=== PATIENT | female | born 1955 | race Caucasian/White ===

== ENCOUNTER 2017-10-24 09:19 | Day surgery (SDC) | payer OTHER ==
[~2017-10-24] VITALS: Ht 154.9 cm; Wt 64.5 kg
[~2017-10-24 09:19] MED LIST: ACID REDUCER20 MG PO; ALBU90OI INH; ATOR40TA PO; Ativan1 MG PO; Calcium 600 MG1 EACH PO; DULO30 PO; DULO60; FISH1000 PO; FLONASE ALLERG9.9 ML NS; IBUP800 PO; LORA.5; MELA3 PO; METF500 PO; Multiple Vitam1 EACH PO; Nortriptyline H25 MG PO; PANT40 PO; QNASL8.7 GM INH; TEMA30 PO; TRAZ100 PO; VIIBRYD20 MG PO; Zyprexa10 MG PO
[2017-10-24] MEDS ORDERED: Desyrel50 MG (10:10)
[2017-10-24 10:20] LABS: Bun/Creatinine Ratio 9.5 (12.0-20.0); Calcium, Blood 8.5 mg/dL (8.5-10.1); Creatinine, Blood 1.16 mg/dL (0.40-1.00)
== END 2017-10-24 11:54 | disposition home or self-care (01) ==
LOC: ORSCSDS 09:19
PROVIDERS: Internal Medicine Gastroenterology
PROC: 0DB68ZX Excision of Stomach, Via Natural or Artificial Opening Endoscopic, Diagnostic (ICD-10-PCS; principal; 2017-10-24 10:45)
PROC: 0DJD8ZZ Inspection of Lower Intestinal Tract, Via Natural or Artificial Opening Endoscopic (ICD-10-PCS; principal; 2017-10-24 10:45)
DX: K30 Functional dyspepsia (principal); K29.00 Acute gastritis without bleeding; K20.9 Esophagitis, unspecified; K57.30 Diverticulosis of large intestine without perforation or abscess without bleeding; K59.00 Constipation, unspecified; R11.0 Nausea; Z87.11 Personal history of peptic ulcer disease; E78.5 Hyperlipidemia, unspecified; F41.9 Anxiety disorder, unspecified; F32.9 Major depressive disorder, single episode, unspecified; F17.210 Nicotine dependence, cigarettes, uncomplicated
CPT/HCPCS: 80048; 88305; 88342; J7120

== ENCOUNTER → 2018-01-09 | Outpatient (CLI) | payer OTHER ==
[~2018-01-09] MED LIST changes: +Desyrel50 MG
[2018-01-09 16:56] LABS: BASOPHILS ABSOLUTE AUTO 0.04 K/mm3 (0.00-0.23); BASOPHILS PERCENT AUTO 0 % (0-2); EOSINOPHILS PERCENT AUTO 1 % (0-6); Hematocrit 33.3 % (33.0-51.0); Hemoglobin 11.1 g/dL (11.5-16.0); IMMATURE GRAN ABSOLUTE AUTO 0.06 K/mm3 (0.00-0.10); IMMATURE GRAN PERCENT AUTO 1 % (0-1); LYMPHOCYTES ABSOLUTE AUTO 2.05 K/mm3 (0.84-5.20); LYMPHOCYTES PERCENT AUTO 19 % (21-46); MONOCYTES ABSOLUTE AUTO 0.75 K/mm3 (0.16-1.47); MONOCYTES PERCENT AUTO 7 % (4-13); Mean Corpuscular HGB Conc 33.3 g/dL (31.5-36.5); Mean Corpuscular Volume 90 fL (80-100); Mean Platelet Volume 10.2 fL (9.1-12.4); NEUTROPHILS ABSOLUTE AUTO 7.95 K/mm3 (1.96-9.15); NEUTROPHILS PERCENT AUTO 73 % (41-73); Platelet Count 325 K/mm3 (150-400); RDW Coefficient Variation 13.9 % (11.7-14.2); RDW Standard Deviation 45.7 fL (35.1-46.3); White Blood Cell Count 10.95 K/mm3 (4.00-11.30)
[2018-01-09 17:13] LABS: Alanine Aminotransfer (ALT/SGP 35 U/L (12-78); Albumin, Blood 3.5 g/dL (3.4-5.0); Alk Phos 76 U/L (40-126); Anion Gap 12 mmol/L (6-16); Aspartate Aminotrans (AST/SGOT 24 U/L (12-37); Bilirubin, Total 0.2 mg/dL (0.1-1.0); Blood Urea Nitrogen 20 mg/dL (8-24); Bun/Creatinine Ratio 11.8 (12.0-20.0); CO2, Blood 22 mmol/L (21-32); Calcium, Blood 9.1 mg/dL (8.5-10.1); Chloride, Blood 99 mmol/L (98-108); Globulin, Blood 3.4 g/dL (2.2-4.0); Glomerular Filtration Rate 30 (60-); Glucose, Blood 81 mg/dL (70-99); Potassium, Blood 4.1 mmol/L (3.5-5.5); Sodium, Blood 133 mmol/L (136-145); Total Protein, Blood 6.9 g/dL (6.4-8.2); Troponin I <0.017 ng/mL (0.000-0.040)
== END ==
LOC: LAB SHORT 16:52 → LAB EV 16:52
PROVIDERS: Physician Assistant
DX: R55 Syncope and collapse (principal)
CPT/HCPCS: 80053; 84484; 85025

== ENCOUNTER → 2018-03-01 | Outpatient (CLI) | payer OTHER | LOC: LAB SHORT 11:45 → LAB 11:45 | PROVIDERS: Nurse Practitioner Family | DX: Z01.419 Encounter for gynecological examination (general) (routine) without abnormal findings (principal) | CPT/HCPCS: G0145 ==

== ENCOUNTER 2020-11-04 12:16 | Day surgery (SDC) | payer OTHER ==
[~2020-11-04] VITALS: Ht 154.9 cm; Wt 66.8 kg
--- NOTE | 2020-11-04 13:24 | NUR ---
11/04/20 1324 Meagan Navarro 1 TRY RIGHT HAND VALVE 2 TRY RIGHT UPPER ARM NO FLASG MOVED
--- NOTE | 2020-11-04 14:49 | NUR ---
11/04/20 1449 TAE RAYA HIGH FIBER DIET/DIVERTICULOSIS PACKETS GIVEN TO PATIENT PER DRS ORDER
== END 2020-11-04 14:45 | disposition home or self-care (01) ==
LOC: ORSCSDS 12:16
PROVIDERS: Internal Medicine Gastroenterology
PROC: 0DJD8ZZ Inspection of Lower Intestinal Tract, Via Natural or Artificial Opening Endoscopic (ICD-10-PCS; principal; 2020-11-04 11:30)
DX: Z12.11 Encounter for screening for malignant neoplasm of colon (principal); K57.30 Diverticulosis of large intestine without perforation or abscess without bleeding; K64.1 Second degree hemorrhoids; K21.9 Gastro-esophageal reflux disease without esophagitis; E78.5 Hyperlipidemia, unspecified; N18.9 Chronic kidney disease, unspecified; D63.1 Anemia in chronic kidney disease; Z87.891 Personal history of nicotine dependence; Z79.899 Other long term (current) drug therapy; Z79.84 Long term (current) use of oral hypoglycemic drugs
CPT/HCPCS: J2704; J7120

== ENCOUNTER 2021-05-10 20:34 | Observation (INO) | payer OTHER ==
[~2021-05-10] VITALS: Ht 154.9 cm; Wt 73.4 kg
[~2021-05-10 20:34] MED LIST changes: +FISH OIL 1,2001 EAC7 PO; -FISH1000 PO; +Hair, Skin & N1 EACH PO; -Multiple Vitam1 EACH PO
[2021-05-10] MEDS ORDERED: REMERON15 M4 PO (20:48)
[2021-05-10] MEDS ORDERED: TRAM50 PO (20:49)
[2021-05-10 20:59] LABS: BASOPHILS ABSOLUTE AUTO 0.09 K/mm3 (0.00-0.23); BASOPHILS PERCENT AUTO 1 % (0-2); EOSINOPHILS ABSOLUTE AUTO 0.25 K/mm3 (0.00-0.68); EOSINOPHILS PERCENT AUTO 2 % (0-6); Hematocrit 34.7 % (33.0-51.0); Hemoglobin 11.8 g/dL (11.5-16.0); IMMATURE GRAN ABSOLUTE AUTO 0.04 K/mm3 (0.00-0.10); IMMATURE GRAN PERCENT AUTO 0 % (0-1); LYMPHOCYTES ABSOLUTE AUTO 2.33 K/mm3 (0.84-5.20); LYMPHOCYTES PERCENT AUTO 18 % (21-46); MONOCYTES ABSOLUTE AUTO 0.84 K/mm3 (0.16-1.47); MONOCYTES PERCENT AUTO 7 % (4-13); Mean Corpuscular HGB 29.9 pg (26.0-34.0); Mean Corpuscular Volume 88 fL (80-100); Mean Platelet Volume 10.1 fL (9.1-12.4); NEUTROPHILS ABSOLUTE AUTO 9.13 K/mm3 (1.96-9.15); NEUTROPHILS PERCENT AUTO 72 % (41-73); Platelet Count 352 K/mm3 (150-400); RDW Coefficient Variation 12.5 % (11.7-14.2); RDW Standard Deviation 40.4 fL (35.1-46.3); Red Blood Cell Count 3.95 M/mm3 (3.80-5.20); White Blood Cell Count 12.68 K/mm3 (4.00-11.30)
[2021-05-10 21:29] LABS: Acetaminophen, Random <2.0 ug/mL (10.0-30.0); Alanine Aminotransfer (ALT/SGP 25 U/L (12-78); Albumin, Blood 3.9 g/dL (3.4-5.0); Albumin/Globulin Ratio 1.3 (0.8-1.8); Alk Phos 74 U/L (50-136); Anion Gap 15 mmol/L (6-16); Aspartate Aminotrans (AST/SGOT 19 U/L (12-37); Bilirubin, Total 0.2 mg/dL (0.1-1.0); Blood Urea Nitrogen 16 mg/dL (8-24); Bun/Creatinine Ratio 14.7 (12.0-20.0); CO2, Blood 15 mmol/L (21-32); Calcium, Blood 8.5 mg/dL (8.5-10.1); Chloride, Blood 102 mmol/L (98-108); Creatinine, Blood 1.09 mg/dL (0.40-1.00); Ethanol (Alcohol), Blood, Med <3 mg/dL; Glomerular Filtration Rate 50 (60-); Glucose, Blood 124 mg/dL (70-99); Potassium, Blood 3.1 mmol/L (3.5-5.5); Salicylate <1.7 mg/dL (2.8-20.0); Sodium, Blood 132 mmol/L (136-145); Thyroxine (T4) 8.3 ug/dL (4.8-13.9); Total Protein, Blood 6.9 g/dL (6.4-8.2)
[2021-05-10 22:42] LABS: Source, Urine Clean Catch
[2021-05-10 22:50] LABS: Appearance, Urine Clear (Clear); Bilirubin, Urine Neg (Neg); Blood, Urine 1+ (Neg); Color, Urine Yellow (P-Yellow); Glucose Qualitative, Urine Neg (Neg); Ketones, Urine Neg (Neg); Leukocyte Esterase, Urine Neg (Neg); Nitrite, Urine Neg (Neg); Protein, Urine 2+ (Neg); Urobilinogen, Urine NORM (Normal)
[2021-05-10 22:56] LABS: Amorphous Mod (0-Heavy); Bacteria Few /hpf; Hyaline Casts 0-2 /lpf (0-2); Squamous Epithelial Cells Few /hpf (Few); White Blood Cells, Urine 0-2 /hpf (0-5)
[2021-05-10 23:00] LABS: U Amphetamine Screen Not Detected; U Barbituate Screen Not Detected; U Benzodiazapine Screen Not Detected; U Buprenorphine Screen Not Detected; U Cannabinoids Screen Not Detected; U Cocaine Screen Not Detected; U Methadone Screen Not Detected; U Methamphetamine Screen Not Detected; U Opiates Screen Not Detected; U Oxycodone Screen Not Detected; U Phencyclidine Screen Not Detected; U Propoxyphene Screen Not Detected
[2021-05-11] MEDS ORDERED: VITAMIN D PO (00:07)
--- NOTE | 2021-05-11 00:35 | NUR ---
0003 PT ARRIVED TO ROOM FROM ER IN STABLE CONDITION. PT REPORTS ABD PAIN, WILL MEDICATE ORDERED AND EVAL FOR EFFECT. TELE NSR AT 86. NO OTHER APPARENT SIGNS OF DISTRESS. CALL LIGHT IS IN REACH.
--- NOTE | 2021-05-11 06:26 | NUR ---
0200 PT LYING IN BED, EYES CLOSED, APPEARS TO BE RESTING. BREATHING IS EVEN, UNLABORED. NO APPARENT SIGNS OF DISTRESS. CALL LIGHT IS IN REACH. 0400 PT LYING IN BED, AWAKE, DENIES NEED FOR ANYTHING AT THIS TIME. NO APPARENT SIGNS OF DISTRESS. CALL LIGHT IS IN REACH.
--- NOTE | 2021-05-11 06:27 | NUR ---
PT IS AAO X 4, ON RA. REPORTED ABD PAIN ON ADMIT, GAVE TYLENOL. TELE NSR. NO SEIZURES SEEN FOR THIS SHIFT.
--- NOTE | 2021-05-11 06:28 | NUR ---
PT LYING IN BED, EYES CLOSED, APPEARS TO BE RESTING. BREATHING IS EVEN, UNLABORED. NO APPARENT SIGNS OF DISTRESS. CALL LIGHT IS IN REACH. NO OTHER CHANGES THIS SHIFT.
[2021-05-11 06:38] LABS: BASOPHILS ABSOLUTE AUTO 0.05 K/mm3 (0.00-0.23); BASOPHILS PERCENT AUTO 1 % (0-2); EOSINOPHILS ABSOLUTE AUTO 0.08 K/mm3 (0.00-0.68); EOSINOPHILS PERCENT AUTO 1 % (0-6); Hematocrit 32.5 % (33.0-51.0); IMMATURE GRAN ABSOLUTE AUTO 0.04 K/mm3 (0.00-0.10); IMMATURE GRAN PERCENT AUTO 0 % (0-1); LYMPHOCYTES ABSOLUTE AUTO 2.19 K/mm3 (0.84-5.20); LYMPHOCYTES PERCENT AUTO 23 % (21-46); MONOCYTES ABSOLUTE AUTO 0.72 K/mm3 (0.16-1.47); MONOCYTES PERCENT AUTO 8 % (4-13); Mean Corpuscular HGB 30.1 pg (26.0-34.0); Mean Corpuscular HGB Conc 33.8 g/dL (31.5-36.5); Mean Corpuscular Volume 89 fL (80-100); Mean Platelet Volume 10.4 fL (9.1-12.4); NEUTROPHILS ABSOLUTE AUTO 6.56 K/mm3 (1.96-9.15); NEUTROPHILS PERCENT AUTO 68 % (41-73); Platelet Count 325 K/mm3 (150-400); RDW Coefficient Variation 12.4 % (11.7-14.2); RDW Standard Deviation 40.5 fL (35.1-46.3); Red Blood Cell Count 3.66 M/mm3 (3.80-5.20); White Blood Cell Count 9.64 K/mm3 (4.00-11.30)
[2021-05-11 07:26] LABS: Bun/Creatinine Ratio 13.1 (12.0-20.0); Calcium, Blood 8.4 mg/dL (8.5-10.1); Creatinine, Blood 0.99 mg/dL (0.40-1.00); Potassium, Blood 3.6 mmol/L (3.5-5.5)
[2021-05-11] MEDS ORDERED: TOPI25 PO (13:10)
--- NOTE | 2021-05-11 13:43 | NUR ---
DISCHARGE INFORMATION/INSTRUCTIONS REVIEWED WITH PATIENT. QUESTIONS ANSWERED, PATIENT VERBALIZES UNDERSTANDING. INSTRUCTED ON NEW RX AND D/C'D RX. PATIENT AWAITING FAMILY FOR DISCHARGE HOME.
== END 2021-05-11 13:54 | disposition home or self-care (01) ==
LOC: ER 20:34 → MEDS 20:35
PROVIDERS: Emergency Medicine; ADMIT Family Medicine
DX: T40.421A Poisoning by tramadol, accidental (unintentional), initial encounter (principal); R56.9 Unspecified convulsions; E87.6 Hypokalemia; E87.1 Hypo-osmolality and hyponatremia; R51.9 Headache, unspecified; N18.31 Chronic kidney disease, stage 3a; D72.829 Elevated white blood cell count, unspecified; K21.9 Gastro-esophageal reflux disease without esophagitis; E78.5 Hyperlipidemia, unspecified; F32.9 Major depressive disorder, single episode, unspecified; F29 Unspecified psychosis not due to a substance or known physiological condition; F41.9 Anxiety disorder, unspecified; Z87.891 Personal history of nicotine dependence
CPT/HCPCS: 36415; 70450; 80048; 80053; 81001; 84436; 84443; 85025; 93005; 93010; A9270; G0378; G0480; J7030

== ENCOUNTER 2021-11-24 09:16 | Day surgery (SDC) | payer OTHER ==
[~2021-11-24] VITALS: Ht 152.4 cm; Wt 67.3 kg
[~2021-11-24 09:16] MED LIST changes: +REMERON15 M4 PO; +TOPI25 PO; +TRAM50 PO; +VITAMIN D PO
== END 2021-11-24 12:01 | disposition home or self-care (01) ==
LOC: ORSCSDS 09:16
PROVIDERS: Otolaryngology
PROC: 09SL0ZZ Reposition Nasal Turbinate, Open Approach (ICD-10-PCS; principal; 2021-11-24 10:30)
PROC: 09BM0ZZ Excision of Nasal Septum, Open Approach (ICD-10-PCS; principal; 2021-11-24 10:30)
DX: J34.2 Deviated nasal septum (principal); J34.3 Hypertrophy of nasal turbinates; E78.5 Hyperlipidemia, unspecified; Z87.891 Personal history of nicotine dependence; G40.909 Epilepsy, unspecified, not intractable, without status epilepticus; N18.30 Chronic kidney disease, stage 3 unspecified; Z79.899 Other long term (current) drug therapy
CPT/HCPCS: C1776; J0171; J1100; J2250; J2370; J2405; J2704; J3010

== ENCOUNTER → 2022-06-06 | Outpatient (CLI) | payer OTHER ==
[2022-06-07 14:35] LABS: Campylobacter Sp Not Detected (NOT DETECT); Plesiomonas Shigelloides Not Detected (NOT DETECT); Salmonella Sp Not Detected (NOT DETECT); Vibrio Sp Not Detected (NOT DETECT); Yersinia Enterocolitica Not Detected (NOT DETECT)
[2022-06-07 14:36] LABS: Adenovirus F 40/41 Not Detected (NOT DETECT); Astrovirus Not Detected (NOT DETECT); Cryptosporidium Not Detected (NOT DETECT); Cyclospora Cayetanensis Not Detected (NOT DETECT); E. Coli O157 Not Detected (NOT DETECT); Entamoeba Histolytica Not Detected (NOT DETECT); Enteroaggregative E. coli-EAEC Not Detected (NOT DETECT); Enteropathogenic E. coli-EPEC Not Detected (NOT DETECT); Enterotoxigenic E. coli-ETEC Not Detected (NOT DETECT); Giardia Lamblia Not Detected (NOT DETECT); Norovirus GI/GII Not Detected (NOT DETECT); Rotavirus A Not Detected (NOT DETECT); Sapovirus Not Detected (NOT DETECT); Shiga Toxin-prod E. coli-STEC Not Detected (NOT DETECT); Shigella/Enteroin E. coli-EIEC Not Detected (NOT DETECT); Vibrio Cholerae Not Detected (NOT DETECT)
== END | disposition home or self-care (01) ==
LOC: LAB SHORT 10:20
PROVIDERS: Physician Assistant
DX: R19.7 Diarrhea, unspecified (principal)
CPT/HCPCS: 87507

== ENCOUNTER 2023-05-25 16:08 | Emergency (ER) | payer OTHER ==
[~2023-05-25] VITALS: Ht 180.3 cm; Wt 68.0 kg
[~2023-05-25 16:08] MED LIST changes: -ONDA4ODT MM
[2023-05-25 17:07] LABS: BASOPHILS ABSOLUTE AUTO 0.05 K/mm3 (0.00-0.23); BASOPHILS PERCENT AUTO 1 % (0-2); EOSINOPHILS ABSOLUTE AUTO 0.02 K/mm3 (0.00-0.68); EOSINOPHILS PERCENT AUTO 0 % (0-6); Hemoglobin 11.2 g/dL (11.5-16.0); IMMATURE GRAN ABSOLUTE AUTO 0.03 K/mm3 (0.00-0.10); IMMATURE GRAN PERCENT AUTO 0 % (0-1); LYMPHOCYTES PERCENT AUTO 27 % (21-46); MONOCYTES ABSOLUTE AUTO 0.67 K/mm3 (0.16-1.47); MONOCYTES PERCENT AUTO 7 % (4-13); Mean Corpuscular HGB 30.8 pg (26.0-34.0); Mean Corpuscular Volume 88 fL (80-100); NEUTROPHILS ABSOLUTE AUTO 6.57 K/mm3 (1.96-9.15); NEUTROPHILS PERCENT AUTO 65 % (41-73); Platelet Count 403 K/mm3 (150-400); RDW Coefficient Variation 14.3 % (11.7-14.2); RDW Standard Deviation 44.9 fL (35.1-46.3); Red Blood Cell Count 3.64 M/mm3 (3.80-5.20); White Blood Cell Count 10.04 K/mm3 (4.00-11.30)
[2023-05-25 17:25] LABS: Albumin, Blood 4.2 g/dL (3.4-5.0); Albumin/Globulin Ratio 1.2 (0.8-1.8); Bilirubin, Total 0.3 mg/dL (0.1-1.0); Bun/Creatinine Ratio 6.4 (12.0-20.0); Calcium, Blood 9.5 mg/dL (8.5-10.1); Creatinine, Blood 1.4 mg/dL (0.40-1.00); Globulin, Blood 3.4 g/dL (2.2-4.0); Magnesium, Blood 2.7 mg/dL (1.6-2.4); Phosphorus, Blood 2.4 mg/dL (2.5-4.9); Potassium, Blood 2.5 mmol/L (3.5-5.5); Total Protein, Blood 7.6 g/dL (6.4-8.2)
[2023-05-25 20:30] VITALS: BP 159/99
[2023-05-25] MEDS ORDERED: ONDA4ODT MM (21:10)
== END 2023-05-25 21:27 | disposition home or self-care (01) ==
LOC: ER 16:08
PROVIDERS: Physician Assistant
DX: E87.6 Hypokalemia (principal); K52.9 Noninfective gastroenteritis and colitis, unspecified; Z88.0 Allergy status to penicillin; Z79.899 Other long term (current) drug therapy; E86.0 Dehydration
CPT/HCPCS: 74177; 80053; 83690; 83735; 84100; 85025; 96365-59; 96366; 96375; 99285-25; A9270; J1200; J1885; J2405; J3480; J7120; Q9967

== ENCOUNTER → 2023-05-25 | Outpatient (CLI) | payer OTHER ==
[~2023-05-25] MED LIST changes: +BRINTELLIX10 MG PO; +BUTALB-ACETAMI1 EAC7 PO; +FAMO20 PO; +LOPE2C; +ONDA4ODT MM; +POTASSIUM GLUCONATE; +TOPI50 PO
[2023-05-25 14:22] LABS: BASOPHILS ABSOLUTE AUTO 0.05 K/mm3 (0.00-0.23); BASOPHILS PERCENT AUTO 1 % (0-2); EOSINOPHILS ABSOLUTE AUTO 0.03 K/mm3 (0.00-0.68); EOSINOPHILS PERCENT AUTO 0 % (0-6); Hematocrit 33.6 % (33.0-51.0); Hemoglobin 11.8 g/dL (11.5-16.0); IMMATURE GRAN ABSOLUTE AUTO 0.03 K/mm3 (0.00-0.10); IMMATURE GRAN PERCENT AUTO 0 % (0-1); LYMPHOCYTES ABSOLUTE AUTO 2.12 K/mm3 (0.84-5.20); LYMPHOCYTES PERCENT AUTO 21 % (21-46); MONOCYTES PERCENT AUTO 7 % (4-13); Mean Corpuscular HGB 30.7 pg (26.0-34.0); Mean Corpuscular HGB Conc 35.1 g/dL (31.5-36.5); Mean Corpuscular Volume 88 fL (80-100); Mean Platelet Volume 10.4 fL (9.1-12.4); NEUTROPHILS ABSOLUTE AUTO 7.15 K/mm3 (1.96-9.15); NEUTROPHILS PERCENT AUTO 71 % (41-73); Platelet Count 414 K/mm3 (150-400); RDW Coefficient Variation 14.4 % (11.7-14.2); RDW Standard Deviation 44.7 fL (35.1-46.3); Red Blood Cell Count 3.84 M/mm3 (3.80-5.20); White Blood Cell Count 10.08 K/mm3 (4.00-11.30)
[2023-05-25 14:52] LABS: Albumin, Blood 4.1 g/dL (3.4-5.0); Albumin/Globulin Ratio 1.2 (0.8-1.8); Bilirubin, Total 0.3 mg/dL (0.1-1.0); Bun/Creatinine Ratio 6.2 (12.0-20.0); Calcium, Blood 9.2 mg/dL (8.5-10.1); Creatinine, Blood 1.46 mg/dL (0.40-1.00); Globulin, Blood 3.3 g/dL (2.2-4.0); Potassium, Blood 2.4 mmol/L (3.5-5.5); Total Protein, Blood 7.4 g/dL (6.4-8.2)
== END | disposition home or self-care (01) ==
LOC: LAB SHORT 13:15 → LAB 13:15
PROVIDERS: Physician Assistant
DX: E86.0 Dehydration (principal)
CPT/HCPCS: 80053; 85025

== ENCOUNTER → 2023-06-21 | Outpatient (CLI) | payer OTHER ==
[~2023-06-21] MED LIST changes: +ONDA4ODT MM; +PROC5 PO
[2023-06-21 16:40] LABS: BASOPHILS ABSOLUTE AUTO 0.04 K/mm3 (0.00-0.23); BASOPHILS PERCENT AUTO 1 % (0-2); EOSINOPHILS ABSOLUTE AUTO 0.06 K/mm3 (0.00-0.68); EOSINOPHILS PERCENT AUTO 1 % (0-6); Hematocrit 34.9 % (33.0-51.0); Hemoglobin 12.1 g/dL (11.5-16.0); IMMATURE GRAN ABSOLUTE AUTO 0.02 K/mm3 (0.00-0.10); IMMATURE GRAN PERCENT AUTO 0 % (0-1); LYMPHOCYTES ABSOLUTE AUTO 1.48 K/mm3 (0.84-5.20); LYMPHOCYTES PERCENT AUTO 24 % (21-46); MONOCYTES ABSOLUTE AUTO 0.43 K/mm3 (0.16-1.47); MONOCYTES PERCENT AUTO 7 % (4-13); Mean Corpuscular HGB 30.9 pg (26.0-34.0); Mean Corpuscular HGB Conc 34.7 g/dL (31.5-36.5); Mean Corpuscular Volume 89 fL (80-100); Mean Platelet Volume 10.6 fL (9.1-12.4); NEUTROPHILS ABSOLUTE AUTO 4.23 K/mm3 (1.96-9.15); NEUTROPHILS PERCENT AUTO 68 % (41-73); Platelet Count 298 K/mm3 (150-400); RDW Coefficient Variation 13.2 % (11.7-14.2); RDW Standard Deviation 43.1 fL (35.1-46.3); Red Blood Cell Count 3.92 M/mm3 (3.80-5.20); White Blood Cell Count 6.26 K/mm3 (4.00-11.30)
[2023-06-21 16:54] LABS: Alanine Aminotransfer (ALT/SGP 60 U/L (12-78); Albumin, Blood 3.2 g/dL (3.4-5.0); Albumin/Globulin Ratio 1.1 (0.8-1.8); Alk Phos 83 U/L (50-136); Anion Gap 6 mmol/L (6-16); Aspartate Aminotrans (AST/SGOT 52 U/L (12-37); Bilirubin, Total 0.3 mg/dL (0.1-1.0); Blood Urea Nitrogen 7 mg/dL (8-24); Bun/Creatinine Ratio 6.4 (12.0-20.0); CO2, Blood 24 mmol/L (21-32); Calcium, Blood 8.6 mg/dL (8.5-10.1); Chloride, Blood 100 mmol/L (98-108); Cholesterol 176 mg/dL (50-200); Creatinine, Blood 1.09 mg/dL (0.40-1.00); Globulin, Blood 2.9 g/dL (2.2-4.0); Glomerular Filtration Rate 56 (60-); Glucose, Blood 104 mg/dL (70-99); HDL Cholesterol 59 mg/dL (>39); LDL/HDL RATIO 1.3; Low Density Lipoprotein Chol 79 mg/dL (0-110); Sodium, Blood 130 mmol/L (136-145); Total Protein, Blood 6.1 g/dL (6.4-8.2); Triglycerides 188 mg/dL (30-160); Very Low Density Lipoprot Chol 37 mg/dL (6-32)
[2023-06-21 17:01] LABS: Potassium, Blood 2.4 mmol/L (3.5-5.5)
== END ==
LOC: LAB 13:45 → LAB SHORT 13:45
PROVIDERS: Family Medicine
DX: N18.30 Chronic kidney disease, stage 3 unspecified (principal); R73.9 Hyperglycemia, unspecified; E78.5 Hyperlipidemia, unspecified
CPT/HCPCS: 80053; 80061; 83036; 85025

== ENCOUNTER 2023-06-22 18:15 | Emergency (ER) | payer OTHER ==
[~2023-06-22] VITALS: Ht 149.9 cm; Wt 65.8 kg
[~2023-06-22 18:15] MED LIST changes: -PROC5 PO
[2023-06-22 18:52] VITALS: BP 151/94
[2023-06-22 20:57] LABS: BASOPHILS ABSOLUTE AUTO 0.05 K/mm3 (0.00-0.23); BASOPHILS PERCENT AUTO 1 % (0-2); EOSINOPHILS ABSOLUTE AUTO 0.04 K/mm3 (0.00-0.68); EOSINOPHILS PERCENT AUTO 0 % (0-6); Hemoglobin 11.8 g/dL (11.5-16.0); IMMATURE GRAN ABSOLUTE AUTO 0.03 K/mm3 (0.00-0.10); IMMATURE GRAN PERCENT AUTO 0 % (0-1); LYMPHOCYTES ABSOLUTE AUTO 2.08 K/mm3 (0.84-5.20); LYMPHOCYTES PERCENT AUTO 22 % (21-46); MONOCYTES ABSOLUTE AUTO 0.74 K/mm3 (0.16-1.47); MONOCYTES PERCENT AUTO 8 % (4-13); Mean Corpuscular HGB Conc 34.7 g/dL (31.5-36.5); Mean Corpuscular Volume 89 fL (80-100); Mean Platelet Volume 10.9 fL (9.1-12.4); NEUTROPHILS ABSOLUTE AUTO 6.56 K/mm3 (1.96-9.15); NEUTROPHILS PERCENT AUTO 69 % (41-73); Platelet Count 289 K/mm3 (150-400); RDW Coefficient Variation 13.3 % (11.7-14.2); RDW Standard Deviation 43.7 fL (35.1-46.3); Red Blood Cell Count 3.81 M/mm3 (3.80-5.20)
[2023-06-22 21:09] LABS: Albumin, Blood 3.3 g/dL (3.4-5.0); Albumin/Globulin Ratio 1.1 (0.8-1.8); Bilirubin, Total 0.4 mg/dL (0.1-1.0); Bun/Creatinine Ratio 6.4 (12.0-20.0); Calcium, Blood 8.8 mg/dL (8.5-10.1); Creatinine, Blood 1.1 mg/dL (0.40-1.00); Globulin, Blood 2.9 g/dL (2.2-4.0); Potassium, Blood 2.6 mmol/L (3.5-5.5); Total Protein, Blood 6.2 g/dL (6.4-8.2)
[2023-06-22] MEDS ORDERED: PROC5 PO (21:41)
== END 2023-06-23 00:31 | disposition home or self-care (01) ==
LOC: ER 18:15
PROVIDERS: Emergency Medicine
DX: E87.6 Hypokalemia (principal); K52.9 Noninfective gastroenteritis and colitis, unspecified; Z87.891 Personal history of nicotine dependence
CPT/HCPCS: 80053; 85025; 93005; 93010; 96365; 96366; 96375; 99283-25; A9270; J0780; J3480; J7030

== ENCOUNTER → 2023-08-29 | Outpatient (CLI) | payer OTHER ==
[~2023-08-29] MED LIST changes: +PROC5 PO
[2023-08-31 15:36] LABS: Adenovirus F 40/41 Not Detected (NOT DETECT); Astrovirus Not Detected (NOT DETECT); Campylobacter Sp Not Detected (NOT DETECT); Cryptosporidium Not Detected (NOT DETECT); Cyclospora Cayetanensis Not Detected (NOT DETECT); E. Coli O157 Not Detected (NOT DETECT); Entamoeba Histolytica Not Detected (NOT DETECT); Enteroaggregative E. coli-EAEC Not Detected (NOT DETECT); Enteropathogenic E. coli-EPEC Not Detected (NOT DETECT); Enterotoxigenic E. coli-ETEC Not Detected (NOT DETECT); Giardia Lamblia Not Detected (NOT DETECT); Plesiomonas Shigelloides Not Detected (NOT DETECT); Salmonella Sp Not Detected (NOT DETECT); Shiga Toxin-prod E. coli-STEC Not Detected (NOT DETECT); Shigella/Enteroin E. coli-EIEC Not Detected (NOT DETECT); Vibrio Cholerae Not Detected (NOT DETECT); Vibrio Sp Not Detected (NOT DETECT); Yersinia Enterocolitica Not Detected (NOT DETECT)
[2023-08-31 15:37] LABS: Norovirus GI/GII Not Detected (NOT DETECT); Rotavirus A Not Detected (NOT DETECT); Sapovirus Not Detected (NOT DETECT)
== END ==
LOC: LAB 15:00 → LAB SHORT 15:00
PROVIDERS: Family Medicine
DX: K52.89 Other specified noninfective gastroenteritis and colitis (principal)
CPT/HCPCS: 87507

== ENCOUNTER → 2023-09-05 | Outpatient (CLI) | payer OTHER ==
[2023-09-06 13:31] LABS: Performing Lab ARUP
== END ==
LOC: LAB 09:00 → LAB SHORT 09-06 09:00
PROVIDERS: Family Medicine
DX: E87.6 Hypokalemia (principal)
CPT/HCPCS: 82945

== ENCOUNTER → 2023-11-15 | Outpatient (CLI) | payer OTHER ==
[2023-11-15 16:32] LABS: BASOPHILS ABSOLUTE AUTO 0.07 K/mm3 (0.00-0.23); BASOPHILS PERCENT AUTO 1 % (0-2); EOSINOPHILS ABSOLUTE AUTO 0.01 K/mm3 (0.00-0.68); EOSINOPHILS PERCENT AUTO 0 % (0-6); Hematocrit 36.7 % (33.0-51.0); Hemoglobin 12.7 g/dL (11.5-16.0); IMMATURE GRAN ABSOLUTE AUTO 0.16 K/mm3 (0.00-0.10); IMMATURE GRAN PERCENT AUTO 1 % (0-1); LYMPHOCYTES ABSOLUTE AUTO 1.74 K/mm3 (0.84-5.20); LYMPHOCYTES PERCENT AUTO 13 % (21-46); MONOCYTES ABSOLUTE AUTO 0.99 K/mm3 (0.16-1.47); MONOCYTES PERCENT AUTO 8 % (4-13); Mean Corpuscular HGB 32.4 pg (26.0-34.0); Mean Corpuscular HGB Conc 34.6 g/dL (31.5-36.5); Mean Corpuscular Volume 94 fL (80-100); NEUTROPHILS PERCENT AUTO 78 % (41-73); NRBC Auto 4.6 /100 WBC (0.0-0.2); Platelet Count 279 K/mm3 (150-400); RDW Standard Deviation 47.8 fL (35.1-46.3); Red Blood Cell Count 3.92 M/mm3 (3.80-5.20); White Blood Cell Count 13.17 K/mm3 (4.00-11.30)
[2023-11-15 16:47] LABS: Albumin, Blood 3.2 g/dL (3.4-5.0); Albumin/Globulin Ratio 0.8 (0.8-1.8); Bilirubin, Total 4.4 mg/dL (0.1-1.0); Bun/Creatinine Ratio 13.8 (12.0-20.0); Calcium, Blood 9.3 mg/dL (8.5-10.1); Creatinine, Blood 1.09 mg/dL (0.40-1.00); Potassium, Blood 2.7 mmol/L (3.5-5.5); Total Protein, Blood 7.2 g/dL (6.4-8.2)
== END | disposition home or self-care (01) ==
LOC: LAB 13:35 → LAB SHORT 13:35
PROVIDERS: Family Medicine
DX: M62.81 Muscle weakness (generalized) (principal); R82.90 Unspecified abnormal findings in urine
CPT/HCPCS: 80053; 85025; 87077; 87086; 87186

== ENCOUNTER 2024-02-21 10:24 | Emergency (ER) | payer OTHER ==
[~2024-02-21] VITALS: Ht 149.9 cm; Wt 63.5 kg
[2024-02-21 11:08] LABS: BASOPHILS PERCENT AUTO 1 % (0-2); EOSINOPHILS ABSOLUTE AUTO 0.02 K/mm3 (0.00-0.68); EOSINOPHILS PERCENT AUTO 0 % (0-6); Hematocrit 33.3 % (33.0-51.0); Hemoglobin 11.4 g/dL (11.5-16.0); IMMATURE GRAN ABSOLUTE AUTO 0.15 K/mm3 (0.00-0.10); IMMATURE GRAN PERCENT AUTO 1 % (0-1); LYMPHOCYTES ABSOLUTE AUTO 1.98 K/mm3 (0.84-5.20); LYMPHOCYTES PERCENT AUTO 16 % (21-46); MONOCYTES ABSOLUTE AUTO 1.04 K/mm3 (0.16-1.47); MONOCYTES PERCENT AUTO 8 % (4-13); Mean Corpuscular HGB 33.2 pg (26.0-34.0); Mean Corpuscular HGB Conc 34.2 g/dL (31.5-36.5); Mean Corpuscular Volume 97 fL (80-100); NEUTROPHILS ABSOLUTE AUTO 9.42 K/mm3 (1.96-9.15); NEUTROPHILS PERCENT AUTO 74 % (41-73); NRBC ABSOLUTE 0.08 K/mm3 (0.00-0.02); NRBC Auto 0.6 /100 WBC (0.0-0.2); Platelet Count 259 K/mm3 (150-400); RDW Coefficient Variation 16.7 % (11.7-14.2); RDW Standard Deviation 59.9 fL (35.1-46.3); Red Blood Cell Count 3.43 M/mm3 (3.80-5.20); White Blood Cell Count 12.71 K/mm3 (4.00-11.30)
[2024-02-21 11:53] LABS: Magnesium, Blood 1.5 mg/dL (1.6-2.4)
[2024-02-21] MEDS ORDERED: Potassium Chloride 20 MEQ TabCR PO ONE (12:00)
[2024-02-21] MEDS ORDERED: NS 1,000 ML IV SCH (12:00)
[2024-02-21] MEDS ORDERED: Potassium Chloride 40 MEQ in NS 250 ML IV ONE (12:00)
[2024-02-21 12:16] LABS: Albumin, Blood 2.7 g/dL (3.4-5.0); Albumin/Globulin Ratio 0.8 (0.8-1.8); Bilirubin, Total 3.1 mg/dL (0.1-1.0); Calcium, Blood 8.5 mg/dL (8.5-10.1); Creatinine, Blood 1.01 mg/dL (0.40-1.00); Globulin, Blood 3.6 g/dL (2.2-4.0); Phosphorus, Blood 1.5 mg/dL (2.5-4.9); Potassium, Blood 2.3 mmol/L (3.5-5.5); Total Protein, Blood 6.3 g/dL (6.4-8.2)
[2024-02-21] MEDS ORDERED: Ondansetron HCl 2 MG / ML 2ML Vial IV ONE ×2 (12:20→15:10)
[2024-02-21 16:30] VITALS: BP 164/95
== END 2024-02-21 17:25 | disposition home or self-care (01) ==
LOC: ER 10:24
PROVIDERS: Physician Assistant
DX: E87.6 Hypokalemia (principal); R74.8 Abnormal levels of other serum enzymes; R16.0 Hepatomegaly, not elsewhere classified; K76.0 Fatty (change of) liver, not elsewhere classified; Z87.891 Personal history of nicotine dependence; Z79.899 Other long term (current) drug therapy
CPT/HCPCS: 80053; 83735; 84100; 85025; 93005; 93010; 96365; 96366; 96375; 96376; 99283-25; A9270; J2405; J3480; J7030; J7050